=== PATIENT | female | born 1970 | race Hispanic/Latino ===

== ENCOUNTER → 2024-02-10 | Outpatient (CLI) | payer OTHER ==
--- NOTE | 2024-02-10 09:59 | HMCIMG ---
CT HEART SAVER PROMOTIONAL HISTORY: Calcium scoring COMPARISON: None TECHNIQUE: Computed tomography of the heart was performed with ECG gating and suspended respiration. Postprocessing was performed on a computer workstation to obtain diastolic phase images, determine calcium score and provide a quantitative assessment of extent of disease. This CT included only the heart. HeartSaver score is 0.8. Please see cardiac calcium score report. The available CT chest images show no acute finding. CT was performed with one or more following dose reduction techniques: automated exposure control, adjustment of the mA and kv according to patient's size, or use of a iterative reconstruction technique.
== END | disposition home or self-care (01) ==
LOC: RAH 08:31
PROVIDERS: ATTEND Family Medicine
DX: Z13.6 Encounter for screening for cardiovascular disorders (principal)
CPT/HCPCS: 75571

== ENCOUNTER → 2025-01-05 | Outpatient (CLI) | payer BC ==
[~2025-01-05] MED LIST: GADOTERATE MEGLUMINE 10 MMOL/20 ML VIAL IV ONE
--- NOTE | 2025-01-06 11:42 | HMCIMG ---
EXAM: MR Lumbar Spine Without and With Intravenous Contrast. CLINICAL HISTORY: Lumbar radiculopathy. Anti-MEATMAN antibodies present. TECHNIQUE: Magnetic resonance images of the lumbar spine in multiple planes with contrast. COMPARISON: None. FINDINGS: For this examination, spinal levels were labeled assuming five [id number], lumbar-type vertebrae, with the inferior labeled L5. No acute fracture. Normal lordotic curvature. Mild multilevel spondylosis is evident by small marginal osteophytes. Disc desiccation noted at the L5-S1 level. Normal vertebral body and disc heights. Normal marrow signal of the vertebrae. Conus medullaris terminates at the T12-L1 level. No abnormal epidural masses. Small perineural cysts were noted at the S2-S3 level. Mild subcutaneous edema in the lower back. Individual spinal levels are described as follows: T12-L1: No disc bulge or herniation. No neural foraminal, lateral recess, or spinal canal stenosis. L1-L2: No disc bulge or herniation. No neural foraminal, lateral recess, or spinal canal stenosis. L2-L3: No disc bulge or herniation. No neural foraminal, lateral recess, or spinal canal stenosis. L3-L4: No disc bulge or herniation. No neural foraminal, lateral recess, or spinal canal stenosis. L4-L5: No disc bulge or herniation. No neural foraminal, lateral recess, or spinal canal stenosis. L5-S1: 3 mm disc osteophyte complex bulge causing mild indentation on the anterior thecal sac. No neural foraminal or lateral recess stenosis. IMPRESSION: Mild multilevel spondylosis. Disc desiccation at the L5-S1 level. Mild indentation on the anterior thecal sac at the L5-S1 level. /[place]
== END | disposition home or self-care (01) ==
LOC: RAH 13:57
PROVIDERS: ATTEND Family Medicine
DX: M51.16 Intervertebral disc disorders with radiculopathy, lumbar region (principal); M47.26 Other spondylosis with radiculopathy, lumbar region; M25.78 Osteophyte, vertebrae; M53.3 Sacrococcygeal disorders, not elsewhere classified; G96.191 Perineural cyst; R60.0 Localized edema; R74.8 Abnormal levels of other serum enzymes; R76.89 Other specified abnormal immunological findings in serum
CPT/HCPCS: 72158; A9575